=== PATIENT | female | born 1990 | race Caucasian/White ===

== ENCOUNTER 2021-04-21 16:15 | Emergency (ER) | payer OTHER, SELFPAY ==
[2021-04-21 16:20] VITALS: BP 146/80; PULSE 54; RESP 18; TEMP 37.2; O2SAT 100; BMI 22.2
--- NOTE | 2021-04-21 20:03 | ECG_ITS ---
Test Reason : FALL Blood Pressure : / mmHG Vent. Rate : 047 BPM Atrial Rate : 047 BPM P-R Int : 148 ms QRS Dur : 082 ms QT Int : 494 ms P-R-T Axes : 076 089 066 degrees QTc Int : 437 ms Sinus bradycardia Possible Left atrial enlargement Borderline ECG No previous ECGs available Referred By: Drake Keyes Electronically Signed By:DAMIÁN TRUJILLO
[2021-04-21 20:33] VITALS: BP 116/82; PULSE 54; RESP 18; TEMP 36.6; O2SAT 100
[2021-04-21 20:54] VITALS: BP 118/79; PULSE 50; RESP 16; TEMP 36.8; O2SAT 99
--- NOTE | 2021-04-21 20:54 | ED.GENADULT ---
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 The patient did not want to faint in front of the patient so she tried to walk out of the room but ended up having a syncopal episode and hitting her head. She is not sure what she hit it on. She came to fairly immediately. This happened several hours ago. The patient has a mild headache denies any nausea vomiting or neck pain. She notes that years ago she did have syncopal episodes and had an echocardiogram. The syncopal episodes were associated with illnesses however. The patient denies any feeling of dizziness now. 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 Related Data Allergies Allergy/AdvReac Type Severity Reaction Status Date / Time No Known Allergies Allergy Verified 04/21/21 20:03 Review of Systems Constitutional: Constitutional: Reports as per HPI and Reports headache(s) (Very mild, localized) Eyes: Eyes: Reports no additional eye complaints ENT: Reports headache(s) (Very mild, localized) Cardiovascular: Cardiovascular: Reports syncope and Denies irregular heart rhythm Respiratory: Respiratory: Reports no additional respiratory complaints Gastrointestinal: Gastrointestinal: Reports no additional gastrointestinal complaints Integumentary/Breasts: Comments: Laceration to right forehead down toward right medial eyebrow Neurologic: Reports syncope, Reports headache(s) (Very mild, localized) and Denies Sensory deficit (Neuro) [facility] Past Medical History Medical History (Updated 04/21/21 @ 22:08 by Drake Keyes MD) No known health problems Social History Social History Advance Directives: No Advance Directives Information Provided: Yes Patient : No Physical Exam Vital Signs: Vital Signs: Last Vital Signs Temp 98.2 F 04/21/21 20:54 Pulse 50 04/21/21 20:54 Resp 16 04/21/21 20:54 BP 118/79 04/21/21 20:54 Pulse Ox 99 09/21/21 20:54 Body Mass Index 22.2 Const: Other: Patient initially standing up speaking with the registration tech when I enter the room, remained standing for several minutes. Patient not pale appearing General: cooperative, no acute distress and alert Orientation/consciousness: patient oriented x3 HENMT: Other: Approximately 4 cm laceration to right mid forehead down toward right medial eyebrow, laceration is about a cm deep, gaping, linear Head: No normal to inspection Eyes: General: appearance normal, both eyes and all related structures Eyelids: Yes eyelids normal Conjunctivae: conjunctivae normal Pupils: Equal, round and reactive pupils present Neck: Neck: Yes normal visual inspection, Yes supple and Yes other (No cervical spine tenderness, full range of motion) Chest: Chest palpation & inspection: normal inspection of the chest Resp: Effort & Inspection: normal respiratory effort Auscultation: clear to auscultation bilaterally Cardio: Rate: regular rate Rhythm: regular rhythm Heart sounds: S1 normal heart sound present, S2 normal heart sound present, no gallops, no murmurs and no rubs GI: Palpation (GI): Soft to palpation, nontender and Other GI palpation findings present (Non-distended) Auscultation: normal bowel sounds Skin: General skin exam: no rashes or lesions noted Neuro: General: patient oriented x3, no focal motor deficits and CN's II-XI intact bilaterally Cranial nerves: Yes Equal, round and reactive pupils present Cognition (Neuro): normal cognition Motor exam (neuro): 5/5 motor strength present throughout Sensory Exam: No Sensory deficit (Neuro) Extrem: General: Yes normal to inspection and Yes no pedal edema Psych: Appearance: grossly normal Affect: normal affect Procedures Laceration Laceration 1: Site: face Size (cm): 4 Description: linear Depth: simple, single layer Local Anesthetic: lidocaine 2% and with epi Amount of anesthesia used (mL): 4 Pre-repair: irrigated extensively Skin layer closed with: nylon Size (cm): 6-0 Number of sutures: 10 Technique: simple, interrupted Medical Decision Making MDM Narrative Medical decision making narrative: Patient with a history of syncope in the distant past, felt as though she was going to have syncopal episode today while removing gavin, thought she would be able to get out of the room based upon her symptoms with prior syncopal episodes, however she fell and hit her forehead. Patient sustained a deep laceration which was linear and approximated easily. EKG shows bradycardia, suggesting increased vagal tone. Patient has a an incomplete right bundle-branch block pattern which she said she was told she had in the past. Patient denies head injury but had said no progressive headache, nausea vomiting, and I do not believe the CT scan is indicated ECG Data Attestation: I personally reviewed and interpreted this ECG as follows: Interpretation: Sinus rhythm with a rate of 47. Normal IN interval. RSR pattern in lead V1 and V2 but no intraventricular conduction delay. No ectopy. Discharge Plan Discharge Clinical Impression: Syncope, Forehead laceration Patient Disposition: Home, Self-Care Instructions: Laceration (ED), Syncope (ED), Head Injury (ED) Additional Instructions: Have sutures removed in 5 days. Steri-Strips can then be placed across the wound. Status on until the wound is completely healed. Apply antibiotic ointment or vitamin-E from a capsule to the wound daily until well healed. Return for any new or worsened symptoms such as progressive headache, nausea or vomiting
--- NOTE | 2021-04-21 21:24 | PC.NURSE ---
patient arrives to ED for LOC at work. Laceration to forehead. Sinus bradycardia on tele. Bloody drainage. Gauze placed. Resting safely. Neuro checks intact. VSS.
[2021-04-21] MEDS: Lidocaine HCl 2%/Epi 1:100,000 20 ML VIAL 5 ML INFILTRATI (21:28)
[2021-04-21] MEDS: Lidocaine HCl 1%/Epi 1:100,000 20 ML VIAL INFILTRATI (21:28)
== END 2021-04-21 22:19 | disposition home or self-care (01) ==
PROVIDERS: Emergency Provider Emergency Medicine
DX: S01.81XA Laceration without foreign body of other part of head, initial encounter (principal); R55 Syncope and collapse; R51.9 Headache, unspecified; W01.0XXA Fall on same level from slipping, tripping and stumbling without subsequent striking against object, initial encounter; Y93.9 Activity, unspecified; Y92.9 Unspecified place or not applicable; Y99.9 Unspecified external cause status
CPT/HCPCS: 12013; 93005; 99284

== ENCOUNTER → 2021-04-23 09:05 | Outpatient (BNVA) | payer OTHER, SELFPAY | PROVIDERS: Visit Provider Physician Assistant | DX: S01.81XA Laceration without foreign body of other part of head, initial encounter (principal); W18.39XA Other fall on same level, initial encounter; R55 Syncope and collapse | CPT/HCPCS: 99204 ==

== ENCOUNTER → 2021-04-27 11:03 | Outpatient (BNVA) | payer OTHER, SELFPAY | PROVIDERS: Visit Provider Physician Assistant Medical | DX: S01.81XA Laceration without foreign body of other part of head, initial encounter (principal); S09.90XA Unspecified injury of head, initial encounter; W18.39XA Other fall on same level, initial encounter | CPT/HCPCS: 99212; 99213 ==